=== PATIENT | male | born 1955 | race Caucasian/White ===

== ENCOUNTER 2023-06-03 08:14 | Day surgery (SDC) | payer MEDICARE, BC ==
[2023-06-03] MEDS ORDERED: Propofol 200 MG/20 ML SDV ONE ×2 (08:39→10:12)
[2023-06-03] MEDS ORDERED: Midazolam 1 MG/ML 2 ML SDV ONE (08:39)
[2023-06-03] MEDS ORDERED: fentaNYL 50 MCG/ML SDV ONE (08:39)
[2023-06-03] MEDS: Lactated Ringers 1,000 ML IV SCH (09:08)
== END 2023-06-03 11:50 | disposition home or self-care (01) ==
LOC: JP.SDS 08:14
PROVIDERS: ATTEND Student in an Organized Health Care Education/Training Program
DX: Z12.11 Encounter for screening for malignant neoplasm of colon (principal); D12.7 Benign neoplasm of rectosigmoid junction; K63.5 Polyp of colon; E78.5 Hyperlipidemia, unspecified; K57.30 Diverticulosis of large intestine without perforation or abscess without bleeding; F41.9 Anxiety disorder, unspecified; J45.909 Unspecified asthma, uncomplicated; Z79.899 Other long term (current) drug therapy; Z87.891 Personal history of nicotine dependence
CPT/HCPCS: 45385; 88305; J2250; J2704; J3010; J7120

== ENCOUNTER 2024-05-30 06:32 | Day surgery (SDC) | payer MEDICARE, BC ==
[2024-05-30 07:11] LABS: HEMATOCRIT 44.7 % (38.4-49.7); HEMOGLOBIN 15.1 g/dL (12.9-16.9); MEAN CORPUSCULAR HEMOGLOBIN 29.6 pg (31.6-35.5); MEAN CORPUSCULAR HGB CONC 33.8 g/dL (31.6-35.5); MEAN CORPUSCULAR VOLUME 87.6 fL (81.4-99.0); RED BLOOD CELL COUNT 5.1 M/uL (4.14-5.76); WHITE BLOOD CELL COUNT,WBC 5.1 K/uL (3.2-11.0)
[2024-05-30] MEDS ORDERED: fentaNYL 250 MCG/5 ML SDV ONE (07:12)
[2024-05-30] MEDS ORDERED: Ondansetron 4 MG/2 ML SDV ONE (07:12)
[2024-05-30] MEDS ORDERED: Dexamethasone 4 MG/ML SDV ONE (07:12)
[2024-05-30] MEDS ORDERED: Propofol 200 MG/20 ML SDV ONE (07:12)
[2024-05-30 07:26] LABS: ANION GAP 7.6 mmol/L (5.0-14.0); CALCIUM 10.5 mg/dL (8.5-10.1); CREATININE 0.9 mg/dL (0.8-1.3); EST CRCL DRUG DOSING (CG) 70.96 mL/min; POTASSIUM,K 4.3 mmol/L (3.6-5.2)
[2024-05-30] MEDS: Nozin Nasal Sanitizer NASBOTH ONE (07:40)
[2024-05-30] MEDS: Lactated Ringers 1,000 ML IV SCH (07:54)
[2024-05-30] MEDS ORDERED: Glycopyrrolate 0.2 MG/ML 5 ML MDV ONE (09:03)
[2024-05-30] MEDS: ceFAZolin 2 GM in Premix Bag 1 BAG IV ONE (09:11)
[2024-05-30] MEDS: Bupivacaine 0.5% 30 ML SDV ONE (09:17)
[2024-05-30] MEDS ORDERED: Lactated Ringers 1,000 ML ONE (09:34)
[2024-05-30] MEDS ORDERED: fentaNYL 100 MCG/2 ML SDV ONE (10:40)
[2024-05-30] MEDS: Acetaminophen/HYDROcodone 325-5 MG Tab PO PRN (13:15)
== END 2024-05-30 13:18 | disposition home or self-care (01) ==
LOC: JP.SDS 06:32
PROVIDERS: ATTEND Specialist
DX: S46.212A Strain of muscle, fascia and tendon of other parts of biceps, left arm, initial encounter (principal); X58.XXXA Exposure to other specified factors, initial encounter
CPT/HCPCS: 24342; 36415; 80048; 85027; 93005; 93010; A9270; C1713; J0665; J0690; J1100; J1596; J2405; J2704; J3010; J7120; 01710-QZ